=== PATIENT | female | born 1955 | race African-American/Black ===

== ENCOUNTER 2023-11-27 14:58 | Inpatient (IN) | payer OTHER ==
[~2023-11-27] VITALS: Ht 167.6 cm; Wt 84.4 kg
[2023-11-27] VITALS (12 sets, daily range): BP systolic 63–158; BP diastolic 42–87; PULSE 89–116; RESP 9–28; TEMP 97.5–97.6
[2023-11-27] MEDS ORDERED: PANTOPRAZOLE 80 MG in SODIUM CHLORIDE 0.9% 100 ML IV SCH (15:15)
[2023-11-27 15:23] LABS: BASOPHILS % 0.7 % (0.0-2.0); EOSINOPHILS % 0.1 % (0.0-5.0); HEMATOCRIT. 28.1 % (36.0-48.0); HEMOGLOBIN. 9.2 g/dL (12.0-16.0); LYMPHOCYTES % 12.6 % (20.0-50.0); MEAN CORPUSCULAR HEMOGLOBIN 27.8 pg (28.0-32.0); MEAN CORPUSCULAR HGB CONC 32.7 g/dL (31.0-37.0); MEAN PLATELET VOLUME 10.7 fl (7.4-10.4); MONOCYTES % 7.7 % (2.0-8.0); NEUTROPHILS % 78.9 % (40.0-76.0); PLATELET 221 x1000/uL (130-400); RED CELL DISTRIBUTION WIDTH 16.4 % (11.6-14.6)
[2023-11-27 15:30] LABS: CHLORIDE 91 mEq/L (98-107); POTASSIUM 4.7 mEq/L (3.5-5.1); SODIUM 131 mEq/L (136-145)
[2023-11-27 15:31] LABS: CALCIUM 8.1 mg/dL (8.7-10.4); CARBON DIOXIDE 23 mEq/L (21-32)
[2023-11-27 15:34] LABS: INR 1.1
[2023-11-27 15:36] LABS: GLUCOSE 105 mg/dL (70-105); UREA NITROGEN BLOOD 44 mg/dL (9-23)
[2023-11-27 15:38] LABS: ALANINE AMINOTRANSFERASE < 7 IU/L (10-49); ALBUMIN 2.1 g/dL (3.2-4.8); ASPARTATE AMINOTRANSFERASE 47 IU/L (<34); BILIRUBIN DIRECT 0.2 mg/dL (<=3.0)
[2023-11-27 15:39] LABS: BILIRUBIN TOTAL 0.3 mg/dL (0.1-1.0); PROTEIN TOTAL 5.1 g/dL (6.0-8.3)
[2023-11-27 15:42] LABS: LACTIC ACID 9.7 mmol/L (0.4-2.0)
[2023-11-27] MEDS: PANTOPRAZOLE 80 MG in SODIUM CHLORIDE 0.9% 100 ML IV SCH (15:58)
[2023-11-27] MEDS: METOCLOPRAMIDE HCL 10MG/2ML VIAL IV ONE (15:58)
[2023-11-27] MEDS: PANTOPRAZOLE SODIUM 40 MG/VIAL IV ONE (15:58)
[2023-11-27] MEDS: NOREPINEPHRINE 8MG/250ML PMX 250 ML IV ONE (16:24)
[2023-11-27] MEDS: LACTATED RINGERS 500 ML IV SCH (17:09)
[2023-11-27] MEDS ORDERED: CEFEPIME 2GM IN DEXT 5% 100ML IV ONE (17:15)
[2023-11-27] MEDS: CEFEPIME 2GM/100ML 100 ML IV NR (17:43)
[2023-11-27] MEDS: MORPHINE SULFATE 4 MG/ML INJ (FOR IV/IM USE) IV ONE (18:25)
[2023-11-27] MEDS: DIPHENHYDRAMINE 50MG/ML VIAL IV ONE (18:26)
[2023-11-27 18:38] LABS: BG BASE EXCESS -3.1 mmol/L (-2.0-2.0); BG CARBOXYHEMOGLOBIN 0.8 % (0.5-1.5); BG DEOXYHEMOGLOBIN 1.7 % (0.0-5.0); BG FRACTION INSPIRED OXYGEN 21; BG HCO3 ACT 18.6 mmol/L (22.0-26.0); BG METHEMOGLOBIN 0.3 % (0.0-1.5); BG OXYGEN SATURATION 98.3 % (92.0-98.5); BG OXYHEMOGLOBIN 97.2 % (94.0-97.0); BG PCO2 24.3 mmHg (35.0-45.0); BG PH 7.501 (7.350-7.450); BG PO2 107.3 mmHg (75.0-100.0); BG SAMPLE SITE RIGHT RADIAL; BG TOTAL HEMOGLOBIN 11.7 g/dL (12.0-18.0); BG VENT MODE ROOM AIR
[2023-11-27] MEDS: VANCOMYCIN 1G PREMIX 200 ML IV SCH ×2 (18:44→18:45)
[2023-11-27] MEDS ORDERED: IPRATROPIUM/ALBUTEROL 0.5-3(2.5)MG/3ML NEB NEB PRN (19:30)
[2023-11-27] MEDS ORDERED: MAGNESIUM/ALUMINUM HYDROXIDE/SIMETHICONE 30ML UDC PO PRN (19:30)
[2023-11-27] MEDS ORDERED: CLONIDINE 0.1MG TABLET PO PRN (19:30)
[2023-11-27] MEDS: SUCRALFATE 1G TABLET PO SCH (20:33)
[2023-11-27] MEDS: PANTOPRAZOLE SODIUM 40 MG/VIAL IV SCH (20:35)
[2023-11-27] MEDS: PIPERACILLIN/TAZO 3.375G/50ML 50 ML IV NR (20:35)
[2023-11-28] VITALS (111 sets, daily range): BP systolic 57–195; BP diastolic 20–122; PULSE 64–150; RESP 0–35; TEMP 97.3–98.6
[2023-11-28] MEDS: MORPHINE SULFATE 2 MG/ML CPJ (NOT FOR IM USE) IV NR (00:10)
[2023-11-28] MEDS: NOREPINEPHRINE 8MG/250ML PMX 250 ML IV PRN (00:12)
[2023-11-28 00:21] LABS: HEMOGLOBIN 13.4 g/dL (12.0-16.0)
[2023-11-28] MEDS: NOREPINEPHRINE 32 MG in DEXT 5% WATER 218 ML IV PRN (01:42)
[2023-11-28 05:44] LABS: BASOPHILS % 0.1 % (0.0-2.0); HEMATOCRIT. 37.2 % (36.0-48.0); HEMOGLOBIN. 12.3 g/dL (12.0-16.0); MEAN CORPUSCULAR HEMOGLOBIN 28.8 pg (28.0-32.0); MEAN CORPUSCULAR HGB CONC 33.2 g/dL (31.0-37.0); MEAN CORPUSCULAR VOLUME 86.8 fL (81.0-99.0); MEAN PLATELET VOLUME 10.7 fl (7.4-10.4); MONOCYTES % 11.6 % (2.0-8.0); NEUTROPHILS % 80.3 % (40.0-76.0); PLATELET 194 x1000/uL (130-400); RED BLOOD CELL COUNT 4.29 mill/uL (4.2-5.4); RED CELL DISTRIBUTION WIDTH 16.3 % (11.6-14.6); WHITE BLOOD COUNT 17.8 x1000/uL (4.5-11.0)
[2023-11-28 05:49] LABS: CALCIUM 8.1 mg/dL (8.7-10.4); CARBON DIOXIDE 23 mEq/L (21-32); CHLORIDE 92 mEq/L (98-107); POTASSIUM 3.7 mEq/L (3.5-5.1); SODIUM 129 mEq/L (136-145)
[2023-11-28 05:54] LABS: GLUCOSE 201 mg/dL (70-105)
[2023-11-28 05:55] LABS: UREA NITROGEN BLOOD 42 mg/dL (9-23)
[2023-11-28 05:56] LABS: PHOSPHORUS 3.1 mg/dL (2.5-4.9)
[2023-11-28 06:04] LABS: CREATININE 7.3 mg/dL (0.6-1.0)
[2023-11-28] MEDS: PIPERACILLIN/TAZO 3.375G/50ML 50 ML IV SCH (08:50)
[2023-11-28 09:09] LABS: LACTATE DEHYDROGENASE 318 IU/L (120-246); LACTIC ACID 2.7 mmol/L (0.4-2.0)
[2023-11-28] MEDS: POVIDONE-IODINE 10% TOPICAL SOLN 240ML TOP NR (10:15)
[2023-11-28 10:43] LABS: TROPONIN I HIGH SENSITIVITY 3994 ng/L (3.0-34)
[2023-11-28] MEDS: MAGNESIUM 2 G PREMIX 50 ML IV NR (10:54)
[2023-11-28] MEDS ORDERED: PHENYLEPHRINE 50MG/250ML PMX 250 ML IV PRN (11:30)
[2023-11-28] MEDS: PHENYLEPHRINE 50 MG in DEXTROSE 5% WATER 250 ML IV PRN (11:43)
[2023-11-28] MEDS: VASOPRESSIN 20 UNIT in SODIUM CHLORIDE 0.9% 99 ML IV PRN (12:00)
[2023-11-28] MEDS: PANTOPRAZOLE 40MG DR TABLET PO SCH (12:03)
[2023-11-28] MEDS: SUCRALFATE 1G TABLET PO SCH (12:03)
[2023-11-28] MEDS: KCL 20MEQ/100ML PREMIX 100 ML IV NR (12:03)
[2023-11-28 13:09] LABS: CREATINE KINASE MB FRACTION 12.6 ng/mL (0.5-3.6)
[2023-11-28 13:53] LABS: BODY FLUID RBC 0 /cu mm (0-2000); BODY FLUID WBC 1 /cu mm (0-200)
[2023-11-28] MEDS: SODIUM CHLORIDE 0.9% 1,000 ML IV SCH (17:52)
[2023-11-28 21:59] LABS: ALBUMIN 2.2 g/dL (3.2-4.8)
[2023-11-28] MEDS: PHENYLEPHRINE 100 MG in DEXT 5% WATER 240 ML IV PRN (22:03)
[2023-11-29] VITALS (91 sets, daily range): BP systolic 46–148; BP diastolic 24–86; PULSE 58–87; RESP 0–27; TEMP 96.8–98
[2023-11-29 00:11] LABS: HEMATOCRIT 28.7 % (36.0-48.0); HEMOGLOBIN 9.7 g/dL (12.0-16.0); MEAN CORPUSCULAR HEMOGLOBIN 28.8 pg (28.0-32.0); MEAN CORPUSCULAR HGB CONC 33.9 g/dL (31.0-37.0); PLATELET 166 x1000/uL (130-400); RED BLOOD CELL COUNT 3.37 mill/uL (4.2-5.4); RED CELL DISTRIBUTION WIDTH 16.3 % (11.6-14.6); WHITE BLOOD COUNT 13.8 x1000/uL (4.5-11.0)
[2023-11-29 00:12] LABS: CREATINE KINASE MB FRACTION 9.7 ng/mL (0.5-3.6)
[2023-11-29 02:04] LABS: CREATINE KINASE MB FRACTION 7.5 ng/mL (0.5-3.6)
[2023-11-29 05:32] LABS: CALCIUM 7.8 mg/dL (8.7-10.4); CARBON DIOXIDE 27 mEq/L (21-32); CHLORIDE 92 mEq/L (98-107); POTASSIUM 3.3 mEq/L (3.5-5.1); SODIUM 128 mEq/L (136-145)
[2023-11-29 05:37] LABS: GLUCOSE 185 mg/dL (70-105)
[2023-11-29 05:38] LABS: UREA NITROGEN BLOOD 43 mg/dL (9-23)
[2023-11-29 05:40] LABS: PHOSPHORUS 2.1 mg/dL (2.5-4.9)
[2023-11-29 05:45] LABS: CREATININE 6.6 mg/dL (0.6-1.0)
[2023-11-29 05:47] LABS: BASOPHILS % 0.3 % (0.0-2.0); EOSINOPHILS % 1.5 % (0.0-5.0); HEMATOCRIT. 26.5 % (36.0-48.0); HEMOGLOBIN. 8.9 g/dL (12.0-16.0); LYMPHOCYTES % 17.2 % (20.0-50.0); MEAN CORPUSCULAR HEMOGLOBIN 28.7 pg (28.0-32.0); MEAN CORPUSCULAR HGB CONC 33.6 g/dL (31.0-37.0); MEAN CORPUSCULAR VOLUME 85.6 fL (81.0-99.0); MEAN PLATELET VOLUME 10.6 fl (7.4-10.4); MONOCYTES % 13.4 % (2.0-8.0); NEUTROPHILS % 67.6 % (40.0-76.0); PLATELET 146 x1000/uL (130-400); RED CELL DISTRIBUTION WIDTH 16.9 % (11.6-14.6); WHITE BLOOD COUNT 11.1 x1000/uL (4.5-11.0)
[2023-11-29 07:55] LABS: BG BASE EXCESS 1.7 mmol/L (-2.0-2.0); BG CARBOXYHEMOGLOBIN 0.3 % (0.5-1.5); BG DEOXYHEMOGLOBIN 3.4 % (0.0-5.0); BG HCO3 ACT 25.4 mmol/L (22.0-26.0); BG METHEMOGLOBIN 0.3 % (0.0-1.5); BG OXYGEN SATURATION 96.6 % (92.0-98.5); BG PCO2 35.9 mmHg (35.0-45.0); BG PH 7.467 (7.350-7.450); BG PO2 84.8 mmHg (75.0-100.0); BG SAMPLE SITE RIGHT RADIAL; BG TOTAL HEMOGLOBIN 9.5 g/dL (12.0-18.0); BG VENT MODE ROOM AIR
[2023-11-29 10:45] LABS: IRON 87 ug/dL (50-170)
[2023-11-29 10:49] LABS: TOTAL IRON BINDING CAPACITY 188 ug/dl (250-425)
[2023-11-29] MEDS: MIDODRINE HCL 5MG TABLET PO SCH (10:57)
[2023-11-29] MEDS: POTASSIUM CHLORIDE 20MEQ TABLET SR PO NR (11:59)
[2023-11-29] MEDS: SODIUM CHLORIDE 0.9% 1,000 ML IV SCH (15:44)
[2023-11-29 15:49] LABS: HEMATOCRIT 29.5 % (36.0-48.0); HEMOGLOBIN 9.7 g/dL (12.0-16.0); MEAN CORPUSCULAR HEMOGLOBIN 28.6 pg (28.0-32.0); MEAN CORPUSCULAR HGB CONC 32.9 g/dL (31.0-37.0); PLATELET 144 x1000/uL (130-400); RED BLOOD CELL COUNT 3.39 mill/uL (4.2-5.4); RED CELL DISTRIBUTION WIDTH 16.4 % (11.6-14.6); WHITE BLOOD COUNT 11.2 x1000/uL (4.5-11.0)
[2023-11-29 16:54] LABS: TROPONIN I HIGH SENSITIVITY 2242 ng/L (3.0-34)
[2023-11-29] MEDS: ACETAMINOPHEN 325MG TABLET PO PRN (17:34)
[2023-11-30] VITALS (89 sets, daily range): BP systolic 75–136; BP diastolic 34–95; PULSE 60–78; RESP 0–25; TEMP 97.5–98.6
[2023-11-30 05:30] LABS: POTASSIUM 3.9 mEq/L (3.5-5.1)
[2023-11-30 05:32] LABS: CALCIUM 7.4 mg/dL (8.7-10.4)
[2023-11-30 05:33] LABS: BASOPHILS % 0.3 % (0.0-2.0); EOSINOPHILS % 1.6 % (0.0-5.0); HEMATOCRIT. 25.7 % (36.0-48.0); HEMOGLOBIN. 8.7 g/dL (12.0-16.0); LYMPHOCYTES % 12.3 % (20.0-50.0); MEAN CORPUSCULAR HGB CONC 33.9 g/dL (31.0-37.0); MEAN CORPUSCULAR VOLUME 85.4 fL (81.0-99.0); MEAN PLATELET VOLUME 10.7 fl (7.4-10.4); MONOCYTES % 8.3 % (2.0-8.0); NEUTROPHILS % 77.5 % (40.0-76.0); PLATELET 140 x1000/uL (130-400); RED BLOOD CELL COUNT 3.01 mill/uL (4.2-5.4); RED CELL DISTRIBUTION WIDTH 16.3 % (11.6-14.6)
[2023-11-30 05:36] LABS: INR 1.2; PROTHROMBIN TIME 13.1 sec (9.6-11.0)
[2023-11-30 05:39] LABS: PHOSPHORUS 1.9 mg/dL (2.5-4.9)
[2023-11-30 05:53] LABS: CREATININE 6.8 mg/dL (0.6-1.0)
[2023-11-30] MEDS: DEXT 5%/0.9% NACL 1,000 ML IV SCH (06:02)
[2023-11-30] MEDS: FOLIC ACID/VITAMIN B COMP W-C TABLET PO SCH (08:21)
[2023-11-30 10:09] LABS: BASOPHILS % 0.2 % (0.0-2.0); EOSINOPHILS % 1.6 % (0.0-5.0); HEMATOCRIT. 26.1 % (36.0-48.0); HEMOGLOBIN. 8.7 g/dL (12.0-16.0); LYMPHOCYTES % 10.2 % (20.0-50.0); MEAN CORPUSCULAR HEMOGLOBIN 28.4 pg (28.0-32.0); MEAN CORPUSCULAR HGB CONC 33.4 g/dL (31.0-37.0); MEAN PLATELET VOLUME 10.2 fl (7.4-10.4); MONOCYTES % 9.3 % (2.0-8.0); NEUTROPHILS % 78.7 % (40.0-76.0); PLATELET 148 x1000/uL (130-400); RED BLOOD CELL COUNT 3.07 mill/uL (4.2-5.4); RED CELL DISTRIBUTION WIDTH 16.4 % (11.6-14.6); WHITE BLOOD COUNT 12.6 x1000/uL (4.5-11.0)
[2023-11-30 10:29] LABS: CALCIUM 7.3 mg/dL (8.7-10.4)
[2023-11-30 10:43] LABS: CREATININE 6.9 mg/dL (0.6-1.0)
[2023-11-30] MEDS ORDERED: SIMETHICONE 40 MG/0.6 ML 15ML ONE (15:36)
[2023-11-30] MEDS ORDERED: LIDOCAINE HCL 1% 10 MG/ML 10ML VIAL ONE (16:01)
[2023-11-30] MEDS ORDERED: PROPOFOL 200MG/20ML VIAL IV ONE ×2 (16:01→16:02)
[2023-11-30] MEDS: EPOETIN ALFA 4000UNITS/ML VIAL SUBCUT SCH (20:46)
[2023-12-01] VITALS (96 sets, daily range): BP systolic 61–145; BP diastolic 23–111; PULSE 57–78; RESP 7–31; TEMP 97–98
[2023-12-01 05:17] LABS: BASOPHILS % 0.4 % (0.0-2.0); EOSINOPHILS % 2.4 % (0.0-5.0); HEMATOCRIT. 26.1 % (36.0-48.0); HEMOGLOBIN. 8.9 g/dL (12.0-16.0); LYMPHOCYTES % 11.8 % (20.0-50.0); MEAN CORPUSCULAR HEMOGLOBIN 29.3 pg (28.0-32.0); MEAN CORPUSCULAR HGB CONC 34.1 g/dL (31.0-37.0); MEAN CORPUSCULAR VOLUME 85.8 fL (81.0-99.0); MEAN PLATELET VOLUME 10.5 fl (7.4-10.4); MONOCYTES % 9.7 % (2.0-8.0); NEUTROPHILS % 75.7 % (40.0-76.0); PLATELET 145 x1000/uL (130-400); RED BLOOD CELL COUNT 3.04 mill/uL (4.2-5.4); RED CELL DISTRIBUTION WIDTH 16.6 % (11.6-14.6); WHITE BLOOD COUNT 9.7 x1000/uL (4.5-11.0)
[2023-12-01 05:30] LABS: POTASSIUM 3.5 mEq/L (3.5-5.1)
[2023-12-01 05:31] LABS: CALCIUM 7.3 mg/dL (8.7-10.4)
[2023-12-01 05:38] LABS: PHOSPHORUS 1.8 mg/dL (2.5-4.9)
[2023-12-01 06:05] LABS: CREATININE 6.5 mg/dL (0.6-1.0)
[2023-12-01] MEDS: MIDODRINE HCL 5MG TABLET PO SCH (17:42)
[2023-12-02] VITALS (90 sets, daily range): BP systolic 65–137; BP diastolic 36–105; PULSE 55–79; RESP 0–28; TEMP 95.8–97.6
[2023-12-02 05:29] LABS: BASOPHILS % 0.4 % (0.0-2.0); EOSINOPHILS % 2.9 % (0.0-5.0); HEMOGLOBIN. 8.5 g/dL (12.0-16.0); LYMPHOCYTES % 15.7 % (20.0-50.0); MEAN CORPUSCULAR HEMOGLOBIN 29.1 pg (28.0-32.0); MEAN CORPUSCULAR HGB CONC 33.9 g/dL (31.0-37.0); MEAN CORPUSCULAR VOLUME 85.8 fL (81.0-99.0); MEAN PLATELET VOLUME 10.3 fl (7.4-10.4); PLATELET 142 x1000/uL (130-400); RED BLOOD CELL COUNT 2.92 mill/uL (4.2-5.4); RED CELL DISTRIBUTION WIDTH 16.8 % (11.6-14.6); WHITE BLOOD COUNT 8.2 x1000/uL (4.5-11.0)
[2023-12-02 05:53] LABS: POTASSIUM 3.3 mEq/L (3.5-5.1)
[2023-12-02 05:55] LABS: CALCIUM 7.3 mg/dL (8.7-10.4); HEPATITIS B SURFACE ANTIGEN NEGATIVE (Negative)
[2023-12-02 06:02] LABS: PHOSPHORUS 2.1 mg/dL (2.5-4.9)
[2023-12-02 06:03] LABS: CREATININE 6.1 mg/dL (0.6-1.0)
[2023-12-02 06:15] LABS: HEPATITIS A AB IGM NEGATIVE (Negative)
[2023-12-02 06:16] LABS: HEPATITIS B CORE AB IGM NEGATIVE (Negative); HEPATITIS C AB NON REACTIVE (Neg) (Negative)
[2023-12-02] MEDS: ASPIRIN 81MG TABLET PO SCH (08:24)
[2023-12-02] MEDS: POTASSIUM PHOSPHATE 10 MMOL in DEXT 5% WATER 246.6667 ML IV NR (08:24)
[2023-12-03] VITALS (82 sets, daily range): BP systolic 73–146; BP diastolic 33–82; PULSE 62–93; RESP 0–31; TEMP 97.5–98.6
[2023-12-03 05:25] LABS: HEMATOCRIT. 28.6 % (36.0-48.0); HEMOGLOBIN. 9.7 g/dL (12.0-16.0); MEAN CORPUSCULAR HEMOGLOBIN 29.4 pg (28.0-32.0); MEAN CORPUSCULAR HGB CONC 34.1 g/dL (31.0-37.0); MEAN CORPUSCULAR VOLUME 86.2 fL (81.0-99.0); MEAN PLATELET VOLUME 10.7 fl (7.4-10.4); PLATELET 171 x1000/uL (130-400); RED BLOOD CELL COUNT 3.31 mill/uL (4.2-5.4); RED CELL DISTRIBUTION WIDTH 16.7 % (11.6-14.6)
[2023-12-03 05:30] LABS: CHLORIDE 94 mEq/L (98-107); POTASSIUM 3.1 mEq/L (3.5-5.1); SODIUM 127 mEq/L (136-145)
[2023-12-03 05:31] LABS: CALCIUM 7.4 mg/dL (8.7-10.4); CARBON DIOXIDE 24 mEq/L (21-32)
[2023-12-03 05:36] LABS: GLUCOSE 127 mg/dL (70-105); UREA NITROGEN BLOOD 34 mg/dL (9-23)
[2023-12-03 05:38] LABS: ALANINE AMINOTRANSFERASE < 7 IU/L (10-49); ALBUMIN 1.7 g/dL (3.2-4.8); ASPARTATE AMINOTRANSFERASE 22 IU/L (<34); BILIRUBIN TOTAL 0.2 mg/dL (0.1-1.0); PROTEIN TOTAL 4.2 g/dL (6.0-8.3)
[2023-12-03 05:39] LABS: CREATININE 6.1 mg/dL (0.6-1.0)
[2023-12-03 05:58] LABS: DIFFERENTIAL COMMENT 1
[2023-12-03] MEDS: POTASSIUM CHLORIDE 20MEQ TABLET SR PO NR (09:27)
[2023-12-03] MEDS: SODIUM CHLORIDE 0.9% 500 ML IV ONE (09:28)
[2023-12-03 11:08] LABS: ANISOCYTOSIS 1+; PLATELET ESTIMATE NORMAL
[2023-12-03] MEDS ORDERED: NALOXONE HCL 0.4MG/ML VIAL IV PRN (16:30)
[2023-12-03] MEDS: HYDROCODONE/ACETAMINOPHEN 5/325MG TABLET PO PRN (16:31)
[2023-12-03] MEDS: IOHEXOL-350 100 ML BOTTLE ONE (19:38)
[2023-12-03] MEDS: INFLUENZA VACCINE 05/PF 0.5 ML SYRINGE IM ONE (19:38)
[2023-12-04] VITALS (93 sets, daily range): BP systolic 13–150; BP diastolic 32–122; PULSE 73–106; RESP 0–28; TEMP 97.1–98.6
[2023-12-04 05:32] LABS: CHLORIDE 97 mEq/L (98-107); HEMATOCRIT. 32.2 % (36.0-48.0); HEMOGLOBIN. 10.7 g/dL (12.0-16.0); MEAN CORPUSCULAR HEMOGLOBIN 28.7 pg (28.0-32.0); MEAN CORPUSCULAR HGB CONC 33.3 g/dL (31.0-37.0); MEAN CORPUSCULAR VOLUME 86.4 fL (81.0-99.0); PLATELET 227 x1000/uL (130-400); POTASSIUM 3.8 mEq/L (3.5-5.1); RED BLOOD CELL COUNT 3.73 mill/uL (4.2-5.4); RED CELL DISTRIBUTION WIDTH 17.2 % (11.6-14.6); SODIUM 128 mEq/L (136-145); WHITE BLOOD COUNT 12.1 x1000/uL (4.5-11.0)
[2023-12-04 05:33] LABS: CARBON DIOXIDE 23 mEq/L (21-32)
[2023-12-04 05:34] LABS: CALCIUM 7.8 mg/dL (8.7-10.4)
[2023-12-04 05:38] LABS: DIFFERENTIAL COMMENT 1; GLUCOSE 56 mg/dL (70-105); UREA NITROGEN BLOOD 36 mg/dL (9-23)
[2023-12-04 05:40] LABS: ALANINE AMINOTRANSFERASE < 7 IU/L (10-49); ASPARTATE AMINOTRANSFERASE 23 IU/L (<34)
[2023-12-04 05:41] LABS: BILIRUBIN TOTAL 0.2 mg/dL (0.1-1.0); PROTEIN TOTAL 4.6 g/dL (6.0-8.3)
[2023-12-04 06:05] LABS: CREATININE 6.7 mg/dL (0.6-1.0)
[2023-12-04 06:09] LABS: ATYPICAL LYMPHOCYTES 3; PLATELET ESTIMATE NORMAL
[2023-12-04 06:10] LABS: GIANT PLATELETS FEW; OVALOCYTES 2+; TARGET CELLS 3+
[2023-12-04] MEDS: ALBUMIN HUMAN 25GM/100ML (25%) IV SCH (10:50)
[2023-12-04] MEDS: ONDANSETRON HCL 4MG/2ML INJ IV PRN (18:44)
[2023-12-05] VITALS (62 sets, daily range): BP systolic 96–131; BP diastolic 16–81; PULSE 76–103; RESP 0–28; TEMP 97.6–98.7
[2023-12-05 04:57] LABS: HEMATOCRIT. 21.3 % (36.0-48.0); HEMOGLOBIN. 7.3 g/dL (12.0-16.0); MEAN CORPUSCULAR HEMOGLOBIN 29.8 pg (28.0-32.0); MEAN CORPUSCULAR HGB CONC 34.5 g/dL (31.0-37.0); MEAN CORPUSCULAR VOLUME 86.4 fL (81.0-99.0); MEAN PLATELET VOLUME 9.7 fl (7.4-10.4); PLATELET 168 x1000/uL (130-400); RED BLOOD CELL COUNT 2.47 mill/uL (4.2-5.4); RED CELL DISTRIBUTION WIDTH 16.9 % (11.6-14.6); WHITE BLOOD COUNT 7.3 x1000/uL (4.5-11.0)
[2023-12-05 05:02] LABS: CHLORIDE 97 mEq/L (98-107); POTASSIUM 3.8 mEq/L (3.5-5.1); SODIUM 128 mEq/L (136-145)
[2023-12-05 05:03] LABS: CALCIUM 8.5 mg/dL (8.7-10.4); CARBON DIOXIDE 22 mEq/L (21-32)
[2023-12-05 05:08] LABS: GLUCOSE 82 mg/dL (70-105); UREA NITROGEN BLOOD 41 mg/dL (9-23)
[2023-12-05 05:09] LABS: ALBUMIN 2.8 g/dL (3.2-4.8)
[2023-12-05 05:10] LABS: ALANINE AMINOTRANSFERASE < 7 IU/L (10-49); ASPARTATE AMINOTRANSFERASE 19 IU/L (<34); BILIRUBIN TOTAL 0.2 mg/dL (0.1-1.0); PHOSPHORUS 2.8 mg/dL (2.5-4.9); PROTEIN TOTAL 4.6 g/dL (6.0-8.3)
[2023-12-05 05:16] LABS: CREATININE 7.2 mg/dL (0.6-1.0)
[2023-12-05 07:02] LABS: DIFFERENTIAL COMMENT 1
[2023-12-05] MEDS: MAGNESIUM 2 G PREMIX 50 ML IV NR (08:10)
[2023-12-05 09:30] LABS: PLATELET ESTIMATE NORMAL
[2023-12-05 09:33] LABS: ANISOCYTOSIS 2+
[2023-12-05 09:34] LABS: TARGET CELLS 1+
[2023-12-05 10:03] LABS: BASOPHILS % 0.9 % (0.0-2.0); EOSINOPHILS % 2.9 % (0.0-5.0); HEMATOCRIT. 21.9 % (36.0-48.0); HEMOGLOBIN. 7.3 g/dL (12.0-16.0); LYMPHOCYTES % 16.4 % (20.0-50.0); MEAN CORPUSCULAR HGB CONC 33.4 g/dL (31.0-37.0); MEAN CORPUSCULAR VOLUME 86.9 fL (81.0-99.0); MEAN PLATELET VOLUME 9.5 fl (7.4-10.4); MONOCYTES % 16.5 % (2.0-8.0); NEUTROPHILS % 63.3 % (40.0-76.0); PLATELET 176 x1000/uL (130-400); RED BLOOD CELL COUNT 2.52 mill/uL (4.2-5.4); RED CELL DISTRIBUTION WIDTH 17.5 % (11.6-14.6); WHITE BLOOD COUNT 7.4 x1000/uL (4.5-11.0)
[2023-12-05 10:05] LABS: DIFFERENTIAL COMMENT 1
[2023-12-05] MEDS: FLUDROCORTISONE ACETATE 0.1MG TABLET PO SCH (14:00)
[2023-12-05] MEDS: FLUDROCORTISONE ACETATE 0.1MG TABLET PO NR (17:38)
[2023-12-06] VITALS (13 sets, daily range): BP systolic 121–156; BP diastolic 60–117; PULSE 68–86; RESP 16–20; TEMP 96.6–98.2; O2SAT 98
[2023-12-06] MEDS: BLOOD SUGAR DIAGNOSTIC STRIP TEST SCH
[2023-12-06] MEDS: FLUDROCORTISONE ACETATE 0.1MG TABLET PO SCH (08:28)
[2023-12-06 09:00] LABS: BASOPHILS % 1.3 % (0.0-2.0); CHLORIDE 99 mEq/L (98-107); HEMATOCRIT. 32.5 % (36.0-48.0); LYMPHOCYTES % 12.3 % (20.0-50.0); MEAN CORPUSCULAR HGB CONC 33.4 g/dL (31.0-37.0); MEAN CORPUSCULAR VOLUME 86.8 fL (81.0-99.0); MEAN PLATELET VOLUME 9.3 fl (7.4-10.4); MONOCYTES % 14.2 % (2.0-8.0); NEUTROPHILS % 70.2 % (40.0-76.0); PLATELET 194 x1000/uL (130-400); POTASSIUM 3.9 mEq/L (3.5-5.1); RED BLOOD CELL COUNT 3.75 mill/uL (4.2-5.4); RED CELL DISTRIBUTION WIDTH 16.6 % (11.6-14.6); SODIUM 128 mEq/L (136-145); WHITE BLOOD COUNT 10.3 x1000/uL (4.5-11.0)
[2023-12-06 09:01] LABS: CARBON DIOXIDE 20 mEq/L (21-32)
[2023-12-06 09:02] LABS: CALCIUM 8.5 mg/dL (8.7-10.4)
[2023-12-06 09:06] LABS: GLUCOSE 71 mg/dL (70-105); UREA NITROGEN BLOOD 35 mg/dL (9-23)
[2023-12-06 09:08] LABS: ALANINE AMINOTRANSFERASE < 7 IU/L (10-49); ALBUMIN 2.4 g/dL (3.2-4.8); ASPARTATE AMINOTRANSFERASE 26 IU/L (<34)
[2023-12-06 09:09] LABS: BILIRUBIN TOTAL 0.3 mg/dL (0.1-1.0); PROTEIN TOTAL 4.5 g/dL (6.0-8.3)
[2023-12-06 09:13] LABS: CREATININE 7.8 mg/dL (0.6-1.0)
[2023-12-06 09:26] LABS: HEMOGLOBIN. 10.9 g/dL (12.0-16.0)
[2023-12-06] MEDS: MIDODRINE HCL 5MG TABLET PO SCH (14:00)
[2023-12-07] VITALS: BP 157/82; PULSE 72; RESP 19; TEMP 96.6
[2023-12-07 04:00] VITALS: BP 167/68; PULSE 75; RESP 20; TEMP 97
[2023-12-07 08:00] VITALS: BP 167/60; PULSE 75; RESP 16; TEMP 97.4
[2023-12-07 08:05] VITALS: BP 165/68; PULSE 75; RESP 16; TEMP 97.4
[2023-12-07] MEDS ORDERED: EPOETIN ALFA-EPBX 4,000 UNIT/ML VIAL SUBCUT SCH (21:00)
== END 2023-12-07 07:45 | disposition short-term general hospital (02) | DRG 853 ==
LOC: ER 15:14 → MICUSO 17:08 → EDBEDREQSVC 17:29 → EDBEDREQ 17:29 → EDBEDREQTM 17:29 → MICUSO 11-30 19:00 → 7EST 12-06 03:28
PROVIDERS: ADMIT Internal Medicine; ATTEND Internal Medicine
PROC: 02HV33Z Insertion of Infusion Device into Superior Vena Cava, Percutaneous Approach (ICD-10-PCS; principal; 2023-11-27)
PROC: B548ZZA Ultrasonography of Superior Vena Cava, Guidance (ICD-10-PCS; 2023-11-27)
PROC: 30233N1 Transfusion of Nonautologous Red Blood Cells into Peripheral Vein, Percutaneous Approach (ICD-10-PCS; 2023-11-27)
PROC: 3E1M39Z Irrigation of Peritoneal Cavity using Dialysate, Percutaneous Approach (ICD-10-PCS; 2023-11-27)
PROC: 3E1M39Z Irrigation of Peritoneal Cavity using Dialysate, Percutaneous Approach (ICD-10-PCS; 2023-11-28)
PROC: 5A1D70Z Performance of Urinary Filtration, Intermittent, Less than 6 Hours Per Day (ICD-10-PCS; 2023-11-29)
PROC: 0DB68ZX Excision of Stomach, Via Natural or Artificial Opening Endoscopic, Diagnostic (ICD-10-PCS; 2023-11-30)
PROC: 0DB78ZX Excision of Stomach, Pylorus, Via Natural or Artificial Opening Endoscopic, Diagnostic (ICD-10-PCS; 2023-11-30)
PROC: 3E1M39Z Irrigation of Peritoneal Cavity using Dialysate, Percutaneous Approach (ICD-10-PCS; 2023-11-30)
PROC: 3E1M39Z Irrigation of Peritoneal Cavity using Dialysate, Percutaneous Approach (ICD-10-PCS; 2023-12-01)
PROC: 3E1M39Z Irrigation of Peritoneal Cavity using Dialysate, Percutaneous Approach (ICD-10-PCS; 2023-12-02)
PROC: 0JBR0ZZ Excision of Left Foot Subcutaneous Tissue and Fascia, Open Approach (ICD-10-PCS; 2023-12-06)
PROC: 3E1M39Z Irrigation of Peritoneal Cavity using Dialysate, Percutaneous Approach (ICD-10-PCS; 2023-12-06)
DX: A41.9 Sepsis, unspecified organism (principal); I21.4 Non-ST elevation (NSTEMI) myocardial infarction; L89.623 Pressure ulcer of left heel, stage 3; N18.6 End stage renal disease; R65.21 Severe sepsis with septic shock; K20.91 Esophagitis, unspecified with bleeding; K29.71 Gastritis, unspecified, with bleeding; I13.2 Hypertensive heart and chronic kidney disease with heart failure and with stage 5 chronic kidney disease, or end stage renal disease; E87.20 Acidosis, unspecified; I47.20 Ventricular tachycardia, unspecified; G93.40 Encephalopathy, unspecified; E87.1 Hypo-osmolality and hyponatremia; R18.8 Other ascites; E87.3 Alkalosis; D50.9 Iron deficiency anemia, unspecified; E11.22 Type 2 diabetes mellitus with diabetic chronic kidney disease; I50.9 Heart failure, unspecified; E11.65 Type 2 diabetes mellitus with hyperglycemia; K44.9 Diaphragmatic hernia without obstruction or gangrene; K74.60 Unspecified cirrhosis of liver; E87.6 Hypokalemia; L89.629 Pressure ulcer of left heel, unspecified stage; E83.42 Hypomagnesemia; E11.51 Type 2 diabetes mellitus with diabetic peripheral angiopathy without gangrene; I35.0 Nonrheumatic aortic (valve) stenosis; D64.9 Anemia, unspecified; R23.4 Changes in skin texture; S30.0XXA Contusion of lower back and pelvis, initial encounter; Z79.4 Long term (current) use of insulin; Z88.8 Allergy status to other drugs, medicaments and biological substances; Z88.6 Allergy status to analgesic agent; Z79.899 Other long term (current) drug therapy; Z99.2 Dependence on renal dialysis; Z74.01 Bed confinement status; X58.XXXA Exposure to other specified factors, initial encounter; Y93.89 Activity, other specified; Y92.89 Other specified places as the place of occurrence of the external cause; Y99.8 Other external cause status
CPT/HCPCS: 36415; 36600; 71045; 74177; 76700; 80048; 80053; 80076; 80202; 80320; 82040; 82375; 82533; 82550; 82553; 82728; 82805; 82962; 83036; 83540; 83550; 83605; 83615; 83735; 83880; 83930; 84100; 84134; 84145; 84484; 85014; 85018; 85025; 85027; 85044; 86705; 86709; 86850; 86900; 86920; 87340; 88305; 88312; 88313; 90935; 90945; 92610; 93005; 93306; 93970; 97162; 97166; 97530; 97535; 99291; A6261; C9113; J0692; J0885; J1200; J2270; J2370; J2405; J2543; J2704; J2765; J3370; J3475; J3480; J3490; J7030; J7042; J7050; J7060; P9016; P9047; Q9967; G0480

== ENCOUNTER 2023-12-30 23:53 | Inpatient (IN) | payer OTHER ==
[~2023-12-30] VITALS: Ht 167.6 cm; Wt 98.9 kg
[~2023-12-30 23:53] MED LIST: ETOMIDATE 2MG/ML 10ML VIAL IV ONE
[2023-12-31] VITALS (69 sets, daily range): BP systolic 82–194; BP diastolic 49–93; PULSE 57–106; RESP 15–29; TEMP 96.3–97.7
[2023-12-31] MEDS: ROCURONIUM BROMIDE 10MG/ML VIAL 5ML IV ONE (00:30)
[2023-12-31] MEDS: VANCOMYCIN 1G PREMIX 200 ML IV ONE (00:30)
[2023-12-31] MEDS: ETOMIDATE 2MG/ML 10ML VIAL IV ONE (00:30)
[2023-12-31] MEDS ORDERED: NOREPINEPHRINE 8MG/250ML PMX 250 ML IV ONE (00:43)
[2023-12-31 00:45] LABS: HEMATOCRIT. 24.8 % (36.0-48.0); HEMOGLOBIN. 8.2 g/dL (12.0-16.0); MEAN CORPUSCULAR HEMOGLOBIN 27.2 pg (28.0-32.0); MEAN CORPUSCULAR HGB CONC 33.1 g/dL (31.0-37.0); MEAN PLATELET VOLUME 10.8 fl (7.4-10.4); PLATELET 162 x1000/uL (130-400); RED BLOOD CELL COUNT 3.03 mill/uL (4.2-5.4); RED CELL DISTRIBUTION WIDTH 19.4 % (11.6-14.6); WHITE BLOOD COUNT 18.9 x1000/uL (4.5-11.0)
[2023-12-31 00:49] LABS: DIFFERENTIAL COMMENT 1
[2023-12-31 00:50] LABS: CHLORIDE 94 mEq/L (98-107); SODIUM 129 mEq/L (136-145)
[2023-12-31 00:51] LABS: CARBON DIOXIDE 22 mEq/L (21-32)
[2023-12-31 00:52] LABS: CALCIUM 7.7 mg/dL (8.7-10.4)
[2023-12-31 00:56] LABS: GLUCOSE 115 mg/dL (70-105)
[2023-12-31 00:57] LABS: UREA NITROGEN BLOOD 19 mg/dL (9-23)
[2023-12-31 00:58] LABS: ALANINE AMINOTRANSFERASE 13 IU/L (10-49); ALBUMIN 1.6 g/dL (3.2-4.8); ASPARTATE AMINOTRANSFERASE 67 IU/L (<34)
[2023-12-31 00:59] LABS: BILIRUBIN DIRECT 0.3 mg/dL (<=3.0); BILIRUBIN TOTAL 0.4 mg/dL (0.1-1.0); PROTEIN TOTAL 4.1 g/dL (6.0-8.3)
[2023-12-31 01:06] LABS: INR 1.3; PROTHROMBIN TIME 14.5 sec (9.6-11.0)
[2023-12-31 01:14] LABS: ATYPICAL LYMPHOCYTES 2; PLATELET ESTIMATE NORMAL; TARGET CELLS 3+
[2023-12-31 01:15] LABS: OVALOCYTES 2+; TEAR DROP CELLS 1+
[2023-12-31 01:25] LABS: CREATININE 6.2 mg/dL (0.6-1.0); POTASSIUM 2.1 mEq/L (3.5-5.1); TROPONIN I HIGH SENSITIVITY 6472 ng/L (3.0-34)
[2023-12-31 01:26] LABS: LACTIC ACID 4.1 mmol/L (0.4-2.0)
[2023-12-31] MEDS: ASPIRIN 300MG SUPP PR NR (01:43)
[2023-12-31] MEDS: KCL 20MEQ/100ML PREMIX 100 ML IV SCH ×2 (01:45→14:37)
[2023-12-31] MEDS ORDERED: KCL 20MEQ/100ML PREMIX 100 ML IV SCH (01:45)
[2023-12-31] MEDS: CALCIUM GLUCONATE 1GM PREMIX 50 ML IV NR (01:45)
[2023-12-31] MEDS ORDERED: KCL 20MEQ/100ML PREMIX 100 ML IV ONE (01:45)
[2023-12-31] MEDS ORDERED: KCL 10MEQ/50ML PREMIX 50 ML IV ONE (01:45)
[2023-12-31] MEDS ORDERED: FENTANYL 2500MCG/250ML PMX 250 ML IV ONE (02:30)
[2023-12-31] MEDS: SODIUM CHLORIDE 0.9% 1000ML BAG (SEPSIS BOLUS) IV ONE (02:31)
[2023-12-31] MEDS: PIPERACILLIN/TAZO 3.375G/50ML 50 ML IV ONE (02:31)
[2023-12-31 03:01] LABS: CLARITY URINE CLOUDY (CLEAR); COLOR URINE YELLOW (YELLOW); GLUCOSE URINE NEGATIVE (NEGATIVE); KETONES URINE NEGATIVE (NEGATIVE); LEUKOCYTE ESTERASE URINE 2+ (NEGATIVE); NITRITE URINE NEGATIVE (NEGATIVE); OCCULT BLOOD URINE 1+ (NEGATIVE); PROTEIN URINE TRACE (NEGATIVE); UROBILINOGEN URINE 0.2 E.U./dL (0.2-1.0)
[2023-12-31] MEDS: NOREPINEPHRINE 8MG/250ML PMX 250 ML IV NR (03:24)
[2023-12-31 03:25] LABS: BACTERIA URINE 1+; RBC URINE 0-2 /hpf (0-2); SQUAMOUS EPITHELIAL CELL URINE 1+ /lpf (RARE/1+); YEAST URINE 2+
[2023-12-31] MEDS: PROPOFOL 10MG/ML 100ML 100 ML IV SCH (04:09)
[2023-12-31] MEDS: VANCOMYCIN 1G PREMIX 200 ML IV NR (04:49)
[2023-12-31] MEDS: FENTANYL CITRATE 2,500 MCG in SODIUM CHLORIDE 0.9% 200 ML IV PRN ×2 (06:10→19:08)
[2023-12-31] MEDS: DOXYCYCLINE 100MG/100ML 100 ML IV NR (09:23)
[2023-12-31] MEDS ORDERED: PANTOPRAZOLE SODIUM 40 MG/VIAL IV SCH (11:15)
[2023-12-31] MEDS ORDERED: DEXTROSE 50% WATER 50ML SYRINGE IV PRN (11:15)
[2023-12-31] MEDS ORDERED: CLONIDINE 0.1MG TABLET PO PRN (11:15)
[2023-12-31] MEDS ORDERED: IPRATROPIUM/ALBUTEROL 0.5-3(2.5)MG/3ML NEB HHN PRN (11:15)
[2023-12-31] MEDS ORDERED: PHENYLEPHRINE 100 MG in DEXT 5% WATER 240 ML IV PRN (11:30)
[2023-12-31] MEDS ORDERED: NOREPINEPHRINE 32 MG in DEXT 5% WATER 218 ML IV PRN (11:30)
[2023-12-31] MEDS ORDERED: SODIUM CHLORIDE 10% FOR INH 15ML NEB INH NR (11:45)
[2023-12-31 11:46] LABS: BG BASE EXCESS -4.4 mmol/L (-2.0-2.0); BG CARBOXYHEMOGLOBIN 0.2 % (0.5-1.5); BG DEOXYHEMOGLOBIN 0.3 % (0.0-5.0); BG HCO3 ACT 16.2 mmol/L (22.0-26.0); BG OXYGEN SATURATION 99.7 % (92.0-98.5); BG OXYHEMOGLOBIN 99.5 % (94.0-97.0); BG PCO2 18.9 mmHg (35.0-45.0); BG PH 7.552 (7.350-7.450); BG PO2 374.4 mmHg (75.0-100.0); BG SAMPLE SITE RIGHT RADIAL; BG TOTAL HEMOGLOBIN 10.3 g/dL (12.0-18.0); BG VENT MODE VENT - AC
[2023-12-31] MEDS ORDERED: VANCOMYCIN 1GM/200ML PMX (BAXTER) IV NR (12:00)
[2023-12-31] MEDS: INSULIN LISPRO 100 UNITS/ML SUBCUT SCH ×2 (12:20→13:18)
[2023-12-31] MEDS: BLOOD SUGAR DIAGNOSTIC STRIP TEST SCH ×2 (12:20→13:18)
[2023-12-31] MEDS ORDERED: FENTANYL 2500MCG/250ML PMX 250 ML IV PRN (12:30)
[2023-12-31 13:01] LABS: *AMPHETAMINES SCREEN URINE NEGATIVE (NEGATIVE); *BARBITURATES SCREEN URINE NEGATIVE (NEGATIVE); *BENZODIAZEPINES SCREEN URINE NEGATIVE (NEGATIVE); *COCAINE SCREEN URINE NEGATIVE (NEGATIVE)
[2023-12-31 13:02] LABS: CANNABINOID URINE SCREEN NEGATIVE (NEGATIVE); ECSTASY MDMA SCREEN URINE NEGATIVE (NEGATIVE); METHADONE URINE SCREEN NEGATIVE (NEGATIVE); OPIATES URINE SCREEN NEGATIVE (NEGATIVE); PHENCYCLIDINE URINE SCREEN NEGATIVE (NEGATIVE)
[2023-12-31] MEDS: PIPERACILLIN/TAZO 3.375G/50ML 50 ML IV SCH (13:17)
[2023-12-31] MEDS: SODIUM BICARBONATE 8.4% 50MEQ/50ML SYR IV NR (13:18)
[2023-12-31] MEDS: PANTOPRAZOLE SODIUM 40 MG/VIAL IV SCH (13:18)
[2023-12-31 13:20] LABS: HEMOGLOBIN. 9.8 g/dL (12.0-16.0); MEAN CORPUSCULAR HEMOGLOBIN 27.3 pg (28.0-32.0); MEAN CORPUSCULAR VOLUME 80.3 fL (81.0-99.0); MEAN PLATELET VOLUME 10.3 fl (7.4-10.4); PLATELET 206 x1000/uL (130-400); RED BLOOD CELL COUNT 3.61 mill/uL (4.2-5.4); RED CELL DISTRIBUTION WIDTH 19.5 % (11.6-14.6); WHITE BLOOD COUNT 27.9 x1000/uL (4.5-11.0)
[2023-12-31 13:31] LABS: DIFFERENTIAL COMMENT 1
[2023-12-31 13:34] LABS: CHLORIDE 94 mEq/L (98-107); SODIUM 127 mEq/L (136-145)
[2023-12-31 13:35] LABS: CALCIUM 8.6 mg/dL (8.7-10.4); CARBON DIOXIDE 22 mEq/L (21-32)
[2023-12-31] MEDS: PROPOFOL 10MG/ML 100ML 100 ML IV PRN (13:39)
[2023-12-31 13:40] LABS: GLUCOSE 95 mg/dL (70-105); UREA NITROGEN BLOOD 19 mg/dL (9-23)
[2023-12-31 13:41] LABS: AMMONIA 39 uMol/L (<32)
[2023-12-31 13:42] LABS: ALANINE AMINOTRANSFERASE 19 IU/L (10-49); ASPARTATE AMINOTRANSFERASE 207 IU/L (<34); BILIRUBIN TOTAL 0.5 mg/dL (0.1-1.0); LACTIC ACID 2.6 mmol/L (0.4-2.0); PHOSPHORUS 3.2 mg/dL (2.5-4.9)
[2023-12-31 13:47] LABS: CREATININE 6.2 mg/dL (0.6-1.0); POTASSIUM 2.5 mEq/L (3.5-5.1)
[2023-12-31 14:04] LABS: FOLIC ACID (FOLATE) SERUM > 20.00 ng/mL (>5.38)
[2023-12-31 14:12] LABS: ANISOCYTOSIS 1+; PLATELET ESTIMATE NORMAL; VITAMIN B12 SERUM > 2000 pg/mL (211-911)
[2023-12-31 14:20] LABS: TROPONIN I HIGH SENSITIVITY 67267 ng/L (3.0-34)
[2023-12-31] MEDS: MAGNESIUM 1 G PREMIX 100 ML IV NR (14:37)
[2023-12-31] MEDS: MAGNESIUM 2 G PREMIX 50 ML IV NR (15:52)
[2023-12-31] MEDS: NOREPINEPHRINE 32 MG in DEXT 5% WATER 218 ML IV PRN (15:53)
[2023-12-31] MEDS: AZITHROMYCIN 500MG/250ML 250 ML IV SCH (18:45)
[2023-12-31] MEDS: EPOETIN ALFA-EPBX 4,000 UNIT/ML VIAL SUBCUT SCH (21:48)
[2024-01-01] VITALS (103 sets, daily range): BP systolic 91–185; BP diastolic 54–90; PULSE 70–94; RESP 9–20; TEMP 97.4–98.2
[2024-01-01 05:44] LABS: BASOPHILS % 0.6 % (0.0-2.0); DIFFERENTIAL COMMENT 0; EOSINOPHILS % 0.9 % (0.0-5.0); HEMATOCRIT. 32.1 % (36.0-48.0); HEMOGLOBIN. 10.9 g/dL (12.0-16.0); LYMPHOCYTES % 18.6 % (20.0-50.0); MEAN CORPUSCULAR HEMOGLOBIN 27.6 pg (28.0-32.0); MEAN CORPUSCULAR HGB CONC 33.9 g/dL (31.0-37.0); MEAN CORPUSCULAR VOLUME 81.5 fL (81.0-99.0); MEAN PLATELET VOLUME 10.6 fl (7.4-10.4); MONOCYTES % 5.8 % (2.0-8.0); NEUTROPHILS % 74.1 % (40.0-76.0); PLATELET 240 x1000/uL (130-400); RED BLOOD CELL COUNT 3.95 mill/uL (4.2-5.4); RED CELL DISTRIBUTION WIDTH 19.9 % (11.6-14.6); WHITE BLOOD COUNT 24.5 x1000/uL (4.5-11.0)
[2024-01-01 05:54] LABS: CHLORIDE 91 mEq/L (98-107); POTASSIUM 3.2 mEq/L (3.5-5.1); SODIUM 127 mEq/L (136-145)
[2024-01-01 05:55] LABS: CALCIUM 8.7 mg/dL (8.7-10.4); CARBON DIOXIDE 22 mEq/L (21-32)
[2024-01-01 06:00] LABS: GLUCOSE 172 mg/dL (70-105)
[2024-01-01 06:01] LABS: UREA NITROGEN BLOOD 20 mg/dL (9-23)
[2024-01-01 06:02] LABS: ALANINE AMINOTRANSFERASE 21 IU/L (10-49); ALBUMIN 1.9 g/dL (3.2-4.8); ASPARTATE AMINOTRANSFERASE 241 IU/L (<34)
[2024-01-01 06:03] LABS: BILIRUBIN TOTAL 0.5 mg/dL (0.1-1.0); PROTEIN TOTAL 4.9 g/dL (6.0-8.3)
[2024-01-01 06:44] LABS: CREATININE 6.4 mg/dL (0.6-1.0)
[2024-01-01 06:50] LABS: TROPONIN I HIGH SENSITIVITY > 25000 ng/L (3.0-34)
[2024-01-01] MEDS: POTASSIUM CHLORIDE 20MEQ/PACKET PO NR (08:42)
[2024-01-01] MEDS: ASPIRIN 81MG EC TABLET PO SCH (08:42)
[2024-01-01] MEDS: VANCOMYCIN 500MG PREMIX 100 ML IV SCH (09:02)
[2024-01-01 10:19] LABS: CREATINE KINASE MB FRACTION 111.2 ng/mL (0.5-3.6)
[2024-01-01 10:51] LABS: BG CARBOXYHEMOGLOBIN 0.2 % (0.5-1.5); BG DEOXYHEMOGLOBIN 1.6 % (0.0-5.0); BG HCO3 ACT 20.1 mmol/L (22.0-26.0); BG METHEMOGLOBIN 0.3 % (0.0-1.5); BG OXYGEN SATURATION 98.4 % (92.0-98.5); BG OXYHEMOGLOBIN 97.9 % (94.0-97.0); BG PCO2 23.9 mmHg (35.0-45.0); BG PH 7.543 (7.350-7.450); BG PO2 106.5 mmHg (75.0-100.0); BG SAMPLE SITE RIGHT RADIAL; BG TOTAL HEMOGLOBIN 11.9 g/dL (12.0-18.0); BG VENT MODE VENT - AC
[2024-01-01] MEDS: ENOXAPARIN 100MG/ML SYR SUBCUT SCH (12:23)
[2024-01-01] MEDS: PROPOFOL 10MG/ML 100ML 100 ML IV PRN (16:45)
[2024-01-02] VITALS (110 sets, daily range): BP systolic 54–193; BP diastolic 22–143; PULSE 71–99; RESP 13–24; TEMP 97.1–98.6; O2SAT 100
[2024-01-02 05:04] LABS: BASOPHILS % 0.4 % (0.0-2.0); EOSINOPHILS % 1.9 % (0.0-5.0); HEMATOCRIT. 28.6 % (36.0-48.0); HEMOGLOBIN. 9.6 g/dL (12.0-16.0); LYMPHOCYTES % 8.7 % (20.0-50.0); MEAN CORPUSCULAR HEMOGLOBIN 27.3 pg (28.0-32.0); MEAN CORPUSCULAR HGB CONC 33.8 g/dL (31.0-37.0); MEAN CORPUSCULAR VOLUME 80.8 fL (81.0-99.0); MEAN PLATELET VOLUME 10.3 fl (7.4-10.4); PLATELET 186 x1000/uL (130-400); RED BLOOD CELL COUNT 3.54 mill/uL (4.2-5.4); RED CELL DISTRIBUTION WIDTH 19.4 % (11.6-14.6); WHITE BLOOD COUNT 25.9 x1000/uL (4.5-11.0)
[2024-01-02 05:10] LABS: CHLORIDE 93 mEq/L (98-107)
[2024-01-02 08:26] LABS: SODIUM 126 mEq/L (136-145)
[2024-01-02 08:27] LABS: CALCIUM 7.9 mg/dL (8.7-10.4); CARBON DIOXIDE 20 mEq/L (21-32)
[2024-01-02 08:32] LABS: GLUCOSE 202 mg/dL (70-105); TRIGLYCERIDE 301 mg/dL (0-150); UREA NITROGEN BLOOD 17 mg/dL (9-23)
[2024-01-02 08:34] LABS: ALANINE AMINOTRANSFERASE 18 IU/L (10-49); ALBUMIN 1.7 g/dL (3.2-4.8); ASPARTATE AMINOTRANSFERASE 169 IU/L (<34)
[2024-01-02 08:35] LABS: BILIRUBIN TOTAL 0.3 mg/dL (0.1-1.0); PROTEIN TOTAL 4.4 g/dL (6.0-8.3)
[2024-01-02 08:57] LABS: CREATININE 5.8 mg/dL (0.6-1.0); POTASSIUM 2.5 mEq/L (3.5-5.1)
[2024-01-02] MEDS: POTASSIUM CHLORIDE 20MEQ/PACKET PO NR (09:48)
[2024-01-02] MEDS: VANCOMYCIN 750MG/150ML (BAXTER) IV NR (09:48)
[2024-01-02 11:56] LABS: BG BASE EXCESS -1.6 mmol/L (-2.0-2.0); BG CARBOXYHEMOGLOBIN 0.3 % (0.5-1.5); BG DEOXYHEMOGLOBIN 0.3 % (0.0-5.0); BG FRACTION INSPIRED OXYGEN 100; BG HCO3 ACT 21.1 mmol/L (22.0-26.0); BG METHEMOGLOBIN 0.1 % (0.0-1.5); BG OXYGEN SATURATION 99.7 % (92.0-98.5); BG OXYHEMOGLOBIN 99.3 % (94.0-97.0); BG PO2 432.5 mmHg (75.0-100.0); BG SAMPLE SITE RIGHT RADIAL; BG TOTAL HEMOGLOBIN 10.4 g/dL (12.0-18.0); BG VENT MODE VENT - AC
[2024-01-02 14:45] LABS: POTASSIUM 2.7 mEq/L (3.5-5.1)
[2024-01-02] MEDS: KCL 20MEQ/100ML PREMIX 100 ML IV SCH (16:05)
[2024-01-02] MEDS ORDERED: PERIT DIALYSIS HE SCH (18:00)
[2024-01-02] MEDS ORDERED: CEFAZOLIN HE SCH (18:00)
[2024-01-02] MEDS ORDERED: DEXT HE SCH (18:00)
[2024-01-02] MEDS: DEXT HE SCH (18:11)
[2024-01-02] MEDS: PERIT DIALYSIS HE SCH (18:11)
[2024-01-02] MEDS: CEFAZOLIN HE SCH (18:11)
[2024-01-03] VITALS (109 sets, daily range): BP systolic 43–168; BP diastolic 23–143; PULSE 72–91; RESP 7–23; TEMP 97.8–98.7
[2024-01-03 05:52] LABS: HEMATOCRIT. 28.7 % (36.0-48.0); HEMOGLOBIN. 9.5 g/dL (12.0-16.0); MEAN CORPUSCULAR HEMOGLOBIN 26.6 pg (28.0-32.0); MEAN CORPUSCULAR VOLUME 80.5 fL (81.0-99.0); MEAN PLATELET VOLUME 10.3 fl (7.4-10.4); PLATELET 194 x1000/uL (130-400); RED BLOOD CELL COUNT 3.56 mill/uL (4.2-5.4); RED CELL DISTRIBUTION WIDTH 20.3 % (11.6-14.6); WHITE BLOOD COUNT 25.9 x1000/uL (4.5-11.0)
[2024-01-03 05:56] LABS: POTASSIUM 3.3 mEq/L (3.5-5.1)
[2024-01-03 05:57] LABS: CALCIUM 7.8 mg/dL (8.7-10.4)
[2024-01-03 06:32] LABS: CREATININE 5.4 mg/dL (0.6-1.0)
[2024-01-03 07:59] LABS: DIFFERENTIAL COMMENT 1
[2024-01-03 10:38] LABS: BG CARBOXYHEMOGLOBIN 0.3 % (0.5-1.5); BG DEOXYHEMOGLOBIN 0.8 % (0.0-5.0); BG FRACTION INSPIRED OXYGEN 50; BG HCO3 ACT 22.1 mmol/L (22.0-26.0); BG METHEMOGLOBIN 0.3 % (0.0-1.5); BG OXYGEN SATURATION 99.2 % (92.0-98.5); BG OXYHEMOGLOBIN 98.6 % (94.0-97.0); BG PCO2 31.2 mmHg (35.0-45.0); BG PH 7.468 (7.350-7.450); BG PO2 145.6 mmHg (75.0-100.0); BG SAMPLE SITE RIGHT RADIAL; BG TOTAL HEMOGLOBIN 10.4 g/dL (12.0-18.0); BG VENT MODE VENT - AC
[2024-01-03] MEDS: POTASSIUM CHLORIDE 20MEQ/PACKET PO NR ×2 (10:48→12:33)
[2024-01-03 12:55] LABS: ALBUMIN 1.7 g/dL (3.2-4.8)
[2024-01-03 13:08] LABS: PREALBUMIN < 5.0 mg/dl (10.0-40.0)
[2024-01-03] MEDS: DEXTROSE 50% WATER 50ML SYRINGE IV PRN (17:59)
[2024-01-03 18:03] LABS: ANISOCYTOSIS 1+; PLATELET ESTIMATE NORMAL
[2024-01-03] MEDS ORDERED: IOHEXOL-300 100 ML BOTTLE ONE (23:44)
[2024-01-04] VITALS (106 sets, daily range): BP systolic 78–168; BP diastolic 51–134; PULSE 67–105; RESP 9–34; TEMP 97.7–98.7
[2024-01-04 05:51] LABS: HEMATOCRIT. 26.7 % (36.0-48.0); HEMOGLOBIN. 8.8 g/dL (12.0-16.0); MEAN CORPUSCULAR HEMOGLOBIN 26.6 pg (28.0-32.0); MEAN CORPUSCULAR HGB CONC 33.1 g/dL (31.0-37.0); MEAN CORPUSCULAR VOLUME 80.5 fL (81.0-99.0); MEAN PLATELET VOLUME 10.4 fl (7.4-10.4); PLATELET 179 x1000/uL (130-400); RED BLOOD CELL COUNT 3.32 mill/uL (4.2-5.4); RED CELL DISTRIBUTION WIDTH 20.6 % (11.6-14.6)
[2024-01-04 05:52] LABS: DIFFERENTIAL COMMENT 1
[2024-01-04 05:59] LABS: CARBON DIOXIDE 21 mEq/L (21-32); CHLORIDE 93 mEq/L (98-107); POTASSIUM 3.8 mEq/L (3.5-5.1); SODIUM 125 mEq/L (136-145)
[2024-01-04 06:00] LABS: CALCIUM 8.1 mg/dL (8.7-10.4)
[2024-01-04 06:05] LABS: GLUCOSE 191 mg/dL (70-105); UREA NITROGEN BLOOD 17 mg/dL (9-23)
[2024-01-04 06:06] LABS: ALANINE AMINOTRANSFERASE 24 IU/L (10-49); ALBUMIN 1.8 g/dL (3.2-4.8)
[2024-01-04 06:07] LABS: ASPARTATE AMINOTRANSFERASE 101 IU/L (<34); BILIRUBIN TOTAL 0.5 mg/dL (0.1-1.0); PROTEIN TOTAL 4.7 g/dL (6.0-8.3)
[2024-01-04 06:08] LABS: CREATININE 5.8 mg/dL (0.6-1.0)
[2024-01-04 09:02] LABS: BG CARBOXYHEMOGLOBIN 0.3 % (0.5-1.5); BG DEOXYHEMOGLOBIN 0.9 % (0.0-5.0); BG FRACTION INSPIRED OXYGEN 35; BG HCO3 ACT 21.8 mmol/L (22.0-26.0); BG METHEMOGLOBIN 0.3 % (0.0-1.5); BG OXYGEN SATURATION 99.1 % (92.0-98.5); BG OXYHEMOGLOBIN 98.5 % (94.0-97.0); BG PO2 140.9 mmHg (75.0-100.0); BG SAMPLE SITE RIGHT RADIAL; BG TOTAL HEMOGLOBIN 10.4 g/dL (12.0-18.0); BG VENT MODE VENT - AC
[2024-01-04 12:08] LABS: ANISOCYTOSIS 2+; PLATELET ESTIMATE NORMAL; TARGET CELLS 1+
[2024-01-04 13:59] LABS: BG BASE EXCESS -0.9 mmol/L (-2.0-2.0); BG DEOXYHEMOGLOBIN 0.8 % (0.0-5.0); BG FRACTION INSPIRED OXYGEN 35; BG HCO3 ACT 22.7 mmol/L (22.0-26.0); BG METHEMOGLOBIN 0.3 % (0.0-1.5); BG OXYGEN SATURATION 99.2 % (92.0-98.5); BG OXYHEMOGLOBIN 98.9 % (94.0-97.0); BG PCO2 32.9 mmHg (35.0-45.0); BG PH 7.456 (7.350-7.450); BG PO2 143.2 mmHg (75.0-100.0); BG SAMPLE SITE RIGHT RADIAL
[2024-01-05] VITALS (117 sets, daily range): BP systolic 85–211; BP diastolic 37–134; PULSE 75–123; RESP 12–37; TEMP 97.8–98.7
[2024-01-05 05:48] LABS: HEMOGLOBIN. 8.6 g/dL (12.0-16.0); MEAN CORPUSCULAR HEMOGLOBIN 26.8 pg (28.0-32.0); MEAN CORPUSCULAR VOLUME 81.4 fL (81.0-99.0); MEAN PLATELET VOLUME 10.3 fl (7.4-10.4); PLATELET 190 x1000/uL (130-400); RED CELL DISTRIBUTION WIDTH 20.8 % (11.6-14.6); WHITE BLOOD COUNT 23.9 x1000/uL (4.5-11.0)
[2024-01-05 05:50] LABS: DIFFERENTIAL COMMENT 1
[2024-01-05 05:52] LABS: POTASSIUM 3.6 mEq/L (3.5-5.1)
[2024-01-05 05:58] LABS: CREATININE 5.5 mg/dL (0.6-1.0)
[2024-01-05 06:20] LABS: PLATELET ESTIMATE NORMAL; TARGET CELLS 2+; TEAR DROP CELLS 1+
[2024-01-05 06:21] LABS: OVALOCYTES 1+
[2024-01-05] MEDS: FUROSEMIDE 100MG/10ML VIAL IVP SCH (09:14)
[2024-01-05] MEDS: POTASSIUM CHLORIDE 20MEQ/PACKET PO NR (09:15)
[2024-01-05] MEDS: MIDODRINE HCL 5MG TABLET PO SCH (10:05)
[2024-01-05] MEDS: ENOXAPARIN 100MG/ML SYR SUBCUT SCH (12:52)
[2024-01-05] MEDS: FLUCONAZOLE 150MG TABLET PO NR (18:04)
[2024-01-06] VITALS (94 sets, daily range): BP systolic 100–153; BP diastolic 41–109; PULSE 93–120; RESP 13–30; TEMP 98.1–99
[2024-01-06 05:42] LABS: DIFFERENTIAL COMMENT 1; HEMOGLOBIN. 8.5 g/dL (12.0-16.0); MEAN CORPUSCULAR HEMOGLOBIN 26.6 pg (28.0-32.0); MEAN CORPUSCULAR HGB CONC 32.7 g/dL (31.0-37.0); MEAN CORPUSCULAR VOLUME 81.3 fL (81.0-99.0); MEAN PLATELET VOLUME 10.5 fl (7.4-10.4); PLATELET 190 x1000/uL (130-400); RED CELL DISTRIBUTION WIDTH 21.3 % (11.6-14.6); WHITE BLOOD COUNT 22.7 x1000/uL (4.5-11.0)
[2024-01-06 05:46] LABS: POTASSIUM 3.5 mEq/L (3.5-5.1)
[2024-01-06 05:47] LABS: CALCIUM 8.2 mg/dL (8.7-10.4)
[2024-01-06 05:52] LABS: CREATININE 5.2 mg/dL (0.6-1.0)
[2024-01-06 06:09] LABS: PLATELET ESTIMATE NORMAL
[2024-01-06 06:10] LABS: OVALOCYTES 2+; TEAR DROP CELLS 2+
[2024-01-06] MEDS: POTASSIUM CHLORIDE 20MEQ/PACKET PO SCH (09:19)
[2024-01-06 13:22] LABS: BG BASE EXCESS -0.6 mmol/L (-2.0-2.0); BG CARBOXYHEMOGLOBIN 0.3 % (0.5-1.5); BG DEOXYHEMOGLOBIN 0.6 % (0.0-5.0); BG FRACTION INSPIRED OXYGEN 35; BG METHEMOGLOBIN 0.1 % (0.0-1.5); BG OXYGEN SATURATION 99.4 % (92.0-98.5); BG PO2 160.7 mmHg (75.0-100.0); BG SAMPLE SITE LEFT RADIAL; BG TOTAL HEMOGLOBIN 8.1 g/dL (12.0-18.0); BG TOTAL RESPIRATORY RATE 21 b/min; BG VENT MODE VENT - AC
[2024-01-06] MEDS: MIDODRINE HCL 5MG TABLET PO SCH (17:06)
[2024-01-07] VITALS (100 sets, daily range): BP systolic 66–183; BP diastolic 46–116; PULSE 82–115; RESP 13–37; TEMP 97.2–98.7
[2024-01-07] MEDS ORDERED: NALOXONE HCL 0.4MG/ML VIAL IV PRN (11:00)
[2024-01-07] MEDS: MORPHINE SULFATE 2 MG/ML INJ (NOT FOR IM USE) IV PRN (12:34)
[2024-01-07] MEDS ORDERED: FLUCONAZOLE 50MG TABLET PO SCH (14:45)
[2024-01-07] MEDS: FLUCONAZOLE 100MG TABLET PO SCH (16:06)
[2024-01-07] MEDS: DEXT HE SCH (18:00)
[2024-01-07] MEDS: CEFAZOLIN HE SCH (18:00)
[2024-01-07] MEDS: PERIT DIALYSIS HE SCH (18:00)
[2024-01-07 18:41] LABS: MEAN CORPUSCULAR HEMOGLOBIN 26.9 pg (28.0-32.0); MEAN CORPUSCULAR HGB CONC 33.2 g/dL (31.0-37.0); MEAN CORPUSCULAR VOLUME 81.1 fL (81.0-99.0); PLATELET 153 x1000/uL (130-400); RED CELL DISTRIBUTION WIDTH 21.1 % (11.6-14.6); WHITE BLOOD COUNT 14.9 x1000/uL (4.5-11.0)
[2024-01-07 18:53] LABS: POTASSIUM 3.8 mEq/L (3.5-5.1)
[2024-01-07 18:55] LABS: CALCIUM 7.7 mg/dL (8.7-10.4); HEMATOCRIT 17.8 % (36.0-48.0); HEMOGLOBIN 5.9 g/dL (12.0-16.0)
[2024-01-07 19:08] LABS: CREATININE 5.1 mg/dL (0.6-1.0)
[2024-01-07 21:26] LABS: HEMATOCRIT 20.1 % (36.0-48.0); HEMOGLOBIN 6.7 g/dL (12.0-16.0)
[2024-01-08] VITALS (91 sets, daily range): BP systolic 78–160; BP diastolic 48–131; PULSE 77–103; RESP 14–41; TEMP 97.5–98.7
[2024-01-08 05:56] LABS: HEMATOCRIT. 28.9 % (36.0-48.0); HEMOGLOBIN. 9.6 g/dL (12.0-16.0); MEAN CORPUSCULAR HEMOGLOBIN 28.2 pg (28.0-32.0); MEAN CORPUSCULAR HGB CONC 33.3 g/dL (31.0-37.0); MEAN CORPUSCULAR VOLUME 84.8 fL (81.0-99.0); MEAN PLATELET VOLUME 10.5 fl (7.4-10.4); PLATELET 171 x1000/uL (130-400); RED BLOOD CELL COUNT 3.41 mill/uL (4.2-5.4); RED CELL DISTRIBUTION WIDTH 21.2 % (11.6-14.6); WHITE BLOOD COUNT 14.9 x1000/uL (4.5-11.0)
[2024-01-08 05:58] LABS: POTASSIUM 3.5 mEq/L (3.5-5.1)
[2024-01-08 05:59] LABS: CALCIUM 8.3 mg/dL (8.7-10.4)
[2024-01-08 06:04] LABS: CREATININE 4.8 mg/dL (0.6-1.0)
[2024-01-08 06:10] LABS: DIFFERENTIAL COMMENT 1
[2024-01-08] MEDS: FLUCONAZOLE 40 MG/ML ORAL SYRINGE NG SCH (09:08)
[2024-01-08 10:55] LABS: BG BASE EXCESS -0.8 mmol/L (-2.0-2.0); BG FRACTION INSPIRED OXYGEN 35; BG HCO3 ACT 22.3 mmol/L (22.0-26.0); BG METHEMOGLOBIN 0.2 % (0.0-1.5); BG OXYHEMOGLOBIN 98.8 % (94.0-97.0); BG PCO2 31.7 mmHg (35.0-45.0); BG PH 7.466 (7.350-7.450); BG PO2 160.2 mmHg (75.0-100.0); BG SAMPLE SITE RIGHT RADIAL; BG TOTAL HEMOGLOBIN 10.6 g/dL (12.0-18.0); BG VENT MODE VENT - CPAP
[2024-01-08 11:59] LABS: ANISOCYTOSIS 3+; NUCLEATED RED BLOOD CELLS 2 /100 WBC; PLATELET ESTIMATE NORMAL; TARGET CELLS 1+
[2024-01-08] MEDS: VANCOMYCIN 750MG/150ML (BAXTER) IV NR (12:22)
[2024-01-09] VITALS (101 sets, daily range): BP systolic 57–143; BP diastolic 36–90; PULSE 81–115; RESP 18–44; TEMP 97.1–98.9
[2024-01-09 05:10] LABS: CALCIUM 7.8 mg/dL (8.7-10.4)
[2024-01-09 05:15] LABS: CREATININE 4.8 mg/dL (0.6-1.0)
[2024-01-09 05:31] LABS: HEMOGLOBIN. 8.4 g/dL (12.0-16.0); MEAN CORPUSCULAR HEMOGLOBIN 28.3 pg (28.0-32.0); MEAN CORPUSCULAR HGB CONC 33.6 g/dL (31.0-37.0); MEAN CORPUSCULAR VOLUME 84.5 fL (81.0-99.0); MEAN PLATELET VOLUME 10.6 fl (7.4-10.4); PLATELET 170 x1000/uL (130-400); RED BLOOD CELL COUNT 2.96 mill/uL (4.2-5.4); RED CELL DISTRIBUTION WIDTH 21.3 % (11.6-14.6); WHITE BLOOD COUNT 18.6 x1000/uL (4.5-11.0)
[2024-01-09 06:47] LABS: DIFFERENTIAL COMMENT 1
[2024-01-09 09:21] LABS: BG BASE EXCESS -1.5 mmol/L (-2.0-2.0); BG DEOXYHEMOGLOBIN 3.1 % (0.0-5.0); BG FRACTION INSPIRED OXYGEN 40; BG HCO3 ACT 23.1 mmol/L (22.0-26.0); BG METHEMOGLOBIN 0.3 % (0.0-1.5); BG OXYGEN SATURATION 96.9 % (92.0-98.5); BG OXYHEMOGLOBIN 96.6 % (94.0-97.0); BG PCO2 38.3 mmHg (35.0-45.0); BG PH 7.398 (7.350-7.450); BG SAMPLE SITE RIGHT RADIAL; BG TOTAL HEMOGLOBIN 8.8 g/dL (12.0-18.0); BG VENT MODE T PIECE
[2024-01-09] MEDS: POTASSIUM CHLORIDE 20MEQ/PACKET PO NR (09:46)
[2024-01-09 10:33] LABS: ANISOCYTOSIS 2+; NUCLEATED RED BLOOD CELLS 2 /100 WBC; PLATELET ESTIMATE NORMAL
[2024-01-09 10:34] LABS: TARGET CELLS 1+
[2024-01-09] MEDS: MICAFUNGIN 100 MG in SODIUM CHLORIDE 0.9% 100 ML IV SCH (19:41)
[2024-01-10] VITALS (105 sets, daily range): BP systolic 83–149; BP diastolic 36–128; PULSE 93–126; RESP 20–54; TEMP 97.5–99
[2024-01-10] MEDS: ONDANSETRON HCL 4MG/2ML INJ IV PRN (02:47)
[2024-01-10 10:21] LABS: BASOPHILS % 0.2 % (0.0-2.0); EOSINOPHILS % 0.2 % (0.0-5.0); LYMPHOCYTES % 9.5 % (20.0-50.0); MEAN CORPUSCULAR HEMOGLOBIN 28.1 pg (28.0-32.0); MEAN CORPUSCULAR HGB CONC 32.9 g/dL (31.0-37.0); MEAN CORPUSCULAR VOLUME 85.3 fL (81.0-99.0); MEAN PLATELET VOLUME 10.2 fl (7.4-10.4); MONOCYTES % 12.5 % (2.0-8.0); NEUTROPHILS % 77.6 % (40.0-76.0); PLATELET 207 x1000/uL (130-400); RED BLOOD CELL COUNT 2.12 mill/uL (4.2-5.4); RED CELL DISTRIBUTION WIDTH 21.4 % (11.6-14.6); WHITE BLOOD COUNT 17.7 x1000/uL (4.5-11.0)
[2024-01-10 10:39] LABS: CARBON DIOXIDE 23 mEq/L (21-32); CHLORIDE 93 mEq/L (98-107); POTASSIUM 3.5 mEq/L (3.5-5.1); SODIUM 128 mEq/L (136-145)
[2024-01-10 10:40] LABS: CALCIUM 7.9 mg/dL (8.7-10.4)
[2024-01-10 10:45] LABS: CREATININE 4.8 mg/dL (0.6-1.0); GLUCOSE 217 mg/dL (70-105); UREA NITROGEN BLOOD 26 mg/dL (9-23)
[2024-01-10 10:48] LABS: DIFFERENTIAL COMMENT 1; HEMATOCRIT. 18.1 % (36.0-48.0); HEMOGLOBIN. 5.9 g/dL (12.0-16.0)
[2024-01-10 10:49] LABS: ADD RBC MORPHOLOGY NO
[2024-01-10] MEDS: METOCLOPRAMIDE HCL 10MG/2ML VIAL IV SCH (13:06)
[2024-01-10 16:21] LABS: IRON 77 ug/dL (50-170)
[2024-01-10 16:24] LABS: TOTAL IRON BINDING CAPACITY 263 ug/dl (250-425)
[2024-01-10] MEDS: ASPIRIN 81MG TABLET PO SCH (17:26)
[2024-01-10] MEDS: EPOETIN ALFA-EPBX 4,000 UNIT/ML VIAL SUBCUT SCH (21:29)
[2024-01-10] MEDS: NOREPINEPHRINE 32 MG in DEXT 5% WATER 218 ML IV PRN (22:32)
[2024-01-10 23:03] LABS: BG BASE EXCESS -8.7 mmol/L (-2.0-2.0); BG CARBOXYHEMOGLOBIN 0.5 % (0.5-1.5); BG DEOXYHEMOGLOBIN 1.8 % (0.0-5.0); BG FRACTION INSPIRED OXYGEN 32; BG HCO3 ACT 15.4 mmol/L (22.0-26.0); BG METHEMOGLOBIN 0.3 % (0.0-1.5); BG OXYGEN SATURATION 98.2 % (92.0-98.5); BG OXYHEMOGLOBIN 97.4 % (94.0-97.0); BG PH 7.358 (7.350-7.450); BG PO2 111.8 mmHg (75.0-100.0); BG SAMPLE SITE LEFT RADIAL; BG TOTAL HEMOGLOBIN 11.5 g/dL (12.0-18.0); BG VENT MODE NASAL CANNULA
[2024-01-10] MEDS: PHENYLEPHRINE 100 MG in DEXT 5% WATER 250 ML IV PRN (23:39)
[2024-01-11] VITALS: BP 110/56; PULSE 118; RESP 21; TEMP 98.5
[2024-01-11] MEDS ORDERED: CALCIUM CHLORIDE 1GM/10ML SYR IV ONE (09:00)
== END 2024-01-11 15:38 | DRG 870 ==
LOC: ER 23:53 → MICUSO 12-31 01:33 → EDBEDREQ 12-31 01:37 → EDBEDREQTM 12-31 01:37
PROVIDERS: ADMIT Internal Medicine; ATTEND Internal Medicine
PROC: 5A1955Z Respiratory Ventilation, Greater than 96 Consecutive Hours (ICD-10-PCS; principal; 2023-12-31)
PROC: 0BH17EZ Insertion of Endotracheal Airway into Trachea, Via Natural or Artificial Opening (ICD-10-PCS; 2023-12-31)
PROC: 02HV33Z Insertion of Infusion Device into Superior Vena Cava, Percutaneous Approach (ICD-10-PCS; 2023-12-31)
PROC: B548ZZA Ultrasonography of Superior Vena Cava, Guidance (ICD-10-PCS; 2023-12-31)
PROC: 5A1D70Z Performance of Urinary Filtration, Intermittent, Less than 6 Hours Per Day (ICD-10-PCS; 2023-12-31)
PROC: 3E1M39Z Irrigation of Peritoneal Cavity using Dialysate, Percutaneous Approach (ICD-10-PCS; 2023-12-31)
PROC: 5A1D70Z Performance of Urinary Filtration, Intermittent, Less than 6 Hours Per Day (ICD-10-PCS; 2024-01-01)
PROC: 3E1M39Z Irrigation of Peritoneal Cavity using Dialysate, Percutaneous Approach (ICD-10-PCS; 2024-01-01)
PROC: 02HV33Z Insertion of Infusion Device into Superior Vena Cava, Percutaneous Approach (ICD-10-PCS; 2024-01-02)
PROC: B548ZZA Ultrasonography of Superior Vena Cava, Guidance (ICD-10-PCS; 2024-01-02)
PROC: 5A1D70Z Performance of Urinary Filtration, Intermittent, Less than 6 Hours Per Day (ICD-10-PCS; 2024-01-02)
PROC: 3E1M39Z Irrigation of Peritoneal Cavity using Dialysate, Percutaneous Approach (ICD-10-PCS; 2024-01-02)
PROC: 5A1D70Z Performance of Urinary Filtration, Intermittent, Less than 6 Hours Per Day (ICD-10-PCS; 2024-01-03)
PROC: 3E1M39Z Irrigation of Peritoneal Cavity using Dialysate, Percutaneous Approach (ICD-10-PCS; 2024-01-03)
PROC: 5A1D70Z Performance of Urinary Filtration, Intermittent, Less than 6 Hours Per Day (ICD-10-PCS; 2024-01-04)
PROC: 5A1D70Z Performance of Urinary Filtration, Intermittent, Less than 6 Hours Per Day (ICD-10-PCS; 2024-01-05)
PROC: 3E1M39Z Irrigation of Peritoneal Cavity using Dialysate, Percutaneous Approach (ICD-10-PCS; 2024-01-05)
PROC: 5A1D70Z Performance of Urinary Filtration, Intermittent, Less than 6 Hours Per Day (ICD-10-PCS; 2024-01-06)
PROC: 3E1M39Z Irrigation of Peritoneal Cavity using Dialysate, Percutaneous Approach (ICD-10-PCS; 2024-01-06)
PROC: 30233N1 Transfusion of Nonautologous Red Blood Cells into Peripheral Vein, Percutaneous Approach (ICD-10-PCS; 2024-01-07)
PROC: 5A1D70Z Performance of Urinary Filtration, Intermittent, Less than 6 Hours Per Day (ICD-10-PCS; 2024-01-07)
PROC: 3E1M39Z Irrigation of Peritoneal Cavity using Dialysate, Percutaneous Approach (ICD-10-PCS; 2024-01-07)
PROC: 5A1D70Z Performance of Urinary Filtration, Intermittent, Less than 6 Hours Per Day (ICD-10-PCS; 2024-01-08)
PROC: 3E1M39Z Irrigation of Peritoneal Cavity using Dialysate, Percutaneous Approach (ICD-10-PCS; 2024-01-08)
PROC: 5A1D70Z Performance of Urinary Filtration, Intermittent, Less than 6 Hours Per Day (ICD-10-PCS; 2024-01-09)
PROC: 3E1M39Z Irrigation of Peritoneal Cavity using Dialysate, Percutaneous Approach (ICD-10-PCS; 2024-01-09)
PROC: 3E1M39Z Irrigation of Peritoneal Cavity using Dialysate, Percutaneous Approach (ICD-10-PCS; 2024-01-10)
PROC: 5A12012 Performance of Cardiac Output, Single, Manual (ICD-10-PCS; 2024-01-11)
DX: A41.9 Sepsis, unspecified organism (principal); G92.8 Other toxic encephalopathy; I21.4 Non-ST elevation (NSTEMI) myocardial infarction; J18.9 Pneumonia, unspecified organism; J96.01 Acute respiratory failure with hypoxia; N18.6 End stage renal disease; R65.21 Severe sepsis with septic shock; L89.153 Pressure ulcer of sacral region, stage 3; K65.9 Peritonitis, unspecified; E43 Unspecified severe protein-calorie malnutrition; E87.1 Hypo-osmolality and hyponatremia; I13.2 Hypertensive heart and chronic kidney disease with heart failure and with stage 5 chronic kidney disease, or end stage renal disease; N39.0 Urinary tract infection, site not specified; L97.912 Non-pressure chronic ulcer of unspecified part of right lower leg with fat layer exposed; J90 Pleural effusion, not elsewhere classified; Z20.822 Contact with and (suspected) exposure to COVID-19; E87.6 Hypokalemia; E88.09 Other disorders of plasma-protein metabolism, not elsewhere classified; I25.10 Atherosclerotic heart disease of native coronary artery without angina pectoris; I50.9 Heart failure, unspecified; Z99.2 Dependence on renal dialysis; I48.91 Unspecified atrial fibrillation; Z68.35 Body mass index [BMI] 35.0-35.9, adult; L89.610 Pressure ulcer of right heel, unstageable; E11.51 Type 2 diabetes mellitus with diabetic peripheral angiopathy without gangrene; E11.22 Type 2 diabetes mellitus with diabetic chronic kidney disease; E11.621 Type 2 diabetes mellitus with foot ulcer; E11.649 Type 2 diabetes mellitus with hypoglycemia without coma; D64.9 Anemia, unspecified; L97.509 Non-pressure chronic ulcer of other part of unspecified foot with unspecified severity; Z86.73 Personal history of transient ischemic attack (TIA), and cerebral infarction without residual deficits; I08.0 Rheumatic disorders of both mitral and aortic valves; Z74.01 Bed confinement status; Z78.1 Physical restraint status; Z88.6 Allergy status to analgesic agent
CPT/HCPCS: 36415; 36573; 36600; 70551; 71045; 71260; 74018; 74177; 76604; 80048; 80053; 80076; 80202; 80305; 81003; 82040; 82140; 82375; 82550; 82553; 82607; 82728; 82746; 82805; 82962; 83036; 83540; 83550; 83605; 83735; 84100; 84132; 84134; 84145; 84478; 84484; 85014; 85018; 85025; 85027; 85044; 86850; 86900; 86920; 87070; 87426; 87804; 90935; 90945; 93005; 93306; 93970; 94003; 99291; A6261; C1725; J0330; J0456; J0610; J0690; J0885; J1650; J1815; J1940; J2248; J2270; J2370; J2405; J2470; J2543; J2704; J2765; J3010; J3370; J3475; J3480; J3490; J7030; J7050; J7060; J7131; P9016; Q9967